=== PATIENT | female | born 1985 | race Caucasian/White ===

== ENCOUNTER → 2020-09-25 10:35 | Outpatient (CLI) | payer OTHER, MEDICAID, SELFPAY ==
[2020-09-25 12:22] LABS: Add Manual Diff / Slide Review NO; Basophils Absolute Auto 0 /uL (0-100); Basophils Percent Auto 0.9 % (0-2); Eosinophils Absolute Auto 100 /uL (0-450); Eosinophils Percent Auto 2.7 % (2-4); Hematocrit 41.9 % (36-46); Hemoglobin 14.5 g/dL (12.0-16.0); Lymphocytes Absolute Auto 1500 /uL (1100-4500); Lymphocytes Percent Auto 36.5 % (25-40); Mean Corpuscular HGB Conc 34.5 % (30-36); Mean Corpuscular Hemoglobin 32.1 PG (26-34); Mean Corpuscular Volume 92.9 fL (80-100); Monocytes Absolute Auto 300 /uL (0-900); Monocytes Percent Auto 7.6 % (3-14); Neutrophils Absolute Auto 2200 /uL (1500-7000); Neutrophils Percent Auto 52.3 % (50-75); Platelet Count 329 X10^3/uL (150-400); Red Blood Cell Count 4.51 X10^6/uL (4.0-5.2); Red Cell Distribution Width 12.1 % (11.6-14.8); White Blood Cell Count 4.2 X10^3/uL (4.5-11.0)
[2020-09-25 12:40] LABS: BUN Creatinine Ratio 14.1 (6-22); Blood Urea Nitrogen 9 mg/dL (7-17); Calcium 9.2 mg/dL (8.4-10.2); Carbon Dioxide 30 mmol/L (22-32); Chloride 104 mmol/L (98-107); Estimated Glomerular Filt Rate > 60.0 mL/min (>60); Glucose 104 mg/dL (70-100); HEMOLYSIS < 15 (0-50); Potassium 4.3 mmol/L (3.4-5.1); Sodium 137 mmol/L (137-145)
[2020-09-25 13:07] LABS: Free T3, Triiodothyronine Free 5.11 pg/mL (2.77-5.27); Free T4, Direct Thyroxine 0.81 ng/dL (0.78-2.19)
[2020-09-25 13:20] LABS: Thyroid Stimulating Hormone 0.419 uIU/mL (0.47-4.68)
== END ==
PROVIDERS: PCP Family Medicine; Referring Provider Family Medicine; Visit Provider Family Medicine
DX: Z00.00 Encounter for general adult medical examination without abnormal findings (principal); R94.6 Abnormal results of thyroid function studies
CPT/HCPCS: 36415; 80048; 84439; 84443; 84481; 85025

== ENCOUNTER → 2021-02-19 10:44 | Outpatient (CLI) | payer OTHER, MEDICAID, SELFPAY ==
[2021-02-19 16:09] LABS: Rubella Antibody IgG 25.3 IU/mL (>15)
[2021-02-20 07:31] LABS: Toxoplasma IgG Interp Negative (.); Toxoplasma gohndii IgG <3.0 IU/mL (0.0-7.1)
[2021-02-20 13:00] LABS: Varicella IgG Antibody 1325 index (Immune >165)
== END ==
PROVIDERS: PCP Family Medicine; Referring Provider Obstetrics & Gynecology; Visit Provider Obstetrics & Gynecology
DX: Z31.69 Encounter for other general counseling and advice on procreation (principal)
CPT/HCPCS: 36415; 86762; 86777; 86778; 86787

== ENCOUNTER → 2021-08-29 15:20 | Outpatient (CLI) | payer OTHER, MEDICAID, SELFPAY ==
[2021-08-29 15:29] LABS: Specimen Label NATERA SEND OUT KIT
[2021-08-29 15:49] LABS: Add Manual Diff / Slide Review NO; Basophils Absolute Auto 0 /uL (0-100); Basophils Percent Auto 0.4 % (0-2); Eosinophils Absolute Auto 100 /uL (0-450); Eosinophils Percent Auto 1.4 % (2-4); Hematocrit 39.9 % (36-46); Hemoglobin 13.5 g/dL (12.0-16.0); Lymphocytes Absolute Auto 1500 /uL (1100-4500); Lymphocytes Percent Auto 23.6 % (25-40); Mean Corpuscular HGB Conc 33.9 % (30-36); Mean Corpuscular Hemoglobin 31.1 PG (26-34); Mean Corpuscular Volume 91.6 fL (80-100); Monocytes Absolute Auto 500 /uL (0-900); Neutrophils Absolute Auto 4100 /uL (1500-7000); Neutrophils Percent Auto 66.6 % (50-75); Platelet Count 402 X10^3/uL (150-400); Red Blood Cell Count 4.35 X10^6/uL (4.0-5.2); White Blood Cell Count 6.2 X10^3/uL (4.5-11.0)
[2021-08-29 15:54] LABS: Appearance Urine UA SL CLOUDY; Bilirubin Urine UA NEGATIVE (NEGATIVE); Color Urine UA YELLOW; Glucose Urine UA NEGATIVE (Negative); Ketones Urine UA NEGATIVE (NEGATIVE); Leukocyte Esterase Urine UA NEGATIVE (NEGATIVE); Nitrite Urine UA NEGATIVE (Negative); Occult Blood Urine UA NEGATIVE (Negative); Protein Urine UA TRACE (Negative); Specific Gravity Urine UA 1.015 (1.000-1.035); Urobilinogen Urine UA 0.2 E.U./dL (0.2)
[2021-08-29 16:27] LABS: Free T4, Direct Thyroxine 1.05 ng/dL (0.78-2.19)
[2021-08-29 16:41] LABS: Thyroid Stimulating Hormone 0.671 uIU/mL (0.47-4.68)
[2021-08-29 18:15] LABS: Hepatitis B Surface Antigen NEGATIVE s/c (NEGATIVE); Rubella Antibody IgG 25.5 IU/mL (>15)
[2021-08-29 18:27] LABS: HIV 1 & 2 Ab/Ag 4th Gen Combo NEGATIVE (NEGATIVE); Hep C Virus Ab w/Reflex Quant NEGATIVE s/c (NEGATIVE)
[2021-08-30 08:05] LABS: RPR Screen Non Reactive (Non Reactive)
[2021-08-30 14:36] LABS: Varicella IgG Antibody 1097 index (Immune >165)
== END ==
PROVIDERS: PCP Family Medicine; Referring Provider Specialist; Visit Provider Specialist
DX: O09.511 Supervision of elderly primigravida, first trimester (principal)
CPT/HCPCS: 36415; 80055; 81003; 84439; 84443; 86787; 86803; 86850; 86900; 86901; 87086; 87389

== ENCOUNTER → 2021-09-27 11:10 | Outpatient (CLI) | payer OTHER, MEDICAID, SELFPAY ==
[2021-10-01 21:30] LABS: Gest Age on Col Date 16.6 weeks (.); Gestational Age Ultrasound (.); Insulin Dep Diabetes No (.); OSBR Risk 1IN 4273 (.); Results Report (.); Test Results *Screen Negative* (.)
== END ==
PROVIDERS: PCP Family Medicine; Referring Provider Specialist; Visit Provider Specialist
DX: Z34.02 Encounter for supervision of normal first pregnancy, second trimester (principal); Z3A.16 16 weeks gestation of pregnancy
CPT/HCPCS: 36415; 82105

== ENCOUNTER → 2021-10-24 12:34 | Outpatient (CLI) | payer OTHER, MEDICAID, SELFPAY ==
--- NOTE | 2021-10-24 12:35 | DI.US.S_ITS ---
PROCEDURE: US OB >= 14 WEEKS FETUS INDICATIONS: ANATOMY OUTSIDE/PRIOR DATING DATA: Last menstrual period (LMP): 06/06/21. LMP-based estimated date of delivery (GRAYSON): 03/13/22. First dating scan (date and location): 08/28/21. Estimated date of delivery (GRAYSON) from first dating scan: 03/11/22. The calculations are made using the first-trimester ultrasound derived GRAYSON of 03/11/22. TECHNIQUE: Real-time scanning was performed of the fetus, with image documentation and biometric measurements. Endovaginal scanning: Not performed COMPARISON: None. FINDINGS: General: A single living intrauterine gestation is present. Presentation: Vertex. Placenta: Placental position is posterior , without previa. Amniotic fluid index: 10.3 cm, normal range is 5-24 cm. Single deepest vertical pocket is 3.2 cm. heart rate: 147 beats per minute. Maternal cervical canal: 4.8 cm long. Normal lower limit is 2.5 cm. biometrics: Biparietal diameter: 4.9 cm, 20 weeks, five days Head circumference: 17.6 cm, 20 weeks, one day Abdominal circumference: 14.6 cm, 19 weeks, six days Femur length: 3.0 cm, 19 weeks, three days Clinically estimated gestational age: 20 weeks, two days Composite gestational age from present scan: 20 weeks, 0 days Estimated weight and percentile: 309 g, 18th percentile Anatomic survey: Neuro: Ventricles are non-dilated at less than 10 mm. Cisterna magna is normal at 3-11 mm. Cerebellum is normal in size and morphology. Nuchal skin fold: Normal at less than 6 mm between 14-21 weeks gestational age. Face: Nose and lips, facial profile are normal. Spine: No evidence for spina bifida. Heart: 4-chambered heart is present, with normal ventricular outflow tracts. Diaphragm: Diaphragm is intact. Stomach: Left-sided stomach is present. Kidneys: No hydronephrosis. Normal is less than 5 mm in 2nd trimester, less than 7 mm in 3rd trimester. Cord: 3-vessel cord has orthotopic insertion. Bladder: Normal in size. Extremities: All 4 extremities identified. IMPRESSION: 1. Single living intrauterine with appropriate growth since the prior study. 2. Normal anatomy. 3. Normal amniotic fluid volume. We strive to produce accurate, complete, and clear reports of imaging services. To assist us in improving patient care, this report was composed using standard report templates and voice recognition software. Therefore, it may contain abnormal punctuation, insertions and/or omissions. Occasional wrong-word or sound-alike substitutions may occur. Though we review the report and make efforts to correct it, we do recommend that the report be read carefully in proper context to recognize any text inaccuracies. Dictated by: Priya Lacey M.D. on 10/24/2021 at 13:52 Approved by: Priya Lacey M.D. on 10/24/2021 at 14:02
== END ==
PROVIDERS: PCP Family Medicine; Referring Provider Specialist; Visit Provider Specialist
DX: Z34.02 Encounter for supervision of normal first pregnancy, second trimester (principal); Z3A.20 20 weeks gestation of pregnancy
CPT/HCPCS: 76811

== ENCOUNTER → 2021-11-05 08:31 | Outpatient (CLI) | payer OTHER, MEDICAID, SELFPAY ==
[2021-11-05 10:29] LABS: Free T4, Direct Thyroxine 0.75 ng/dL (0.78-2.19)
== END ==
PROVIDERS: PCP Family Medicine; Referring Provider Specialist; Visit Provider Specialist
DX: E03.9 Hypothyroidism, unspecified (principal)
CPT/HCPCS: 36415; 84439; 84443

== ENCOUNTER → 2021-11-27 08:46 | Outpatient (CLI) | payer OTHER, MEDICAID, SELFPAY ==
[2021-11-27 10:39] LABS: Hematocrit 34.5 % (36-46); Hemoglobin 11.8 g/dL (12.0-16.0)
[2021-11-27 11:00] LABS: GTT (PREG) 1 Hour PP 50gm Dose 147 mg/dL (76-139)
== END ==
PROVIDERS: PCP Family Medicine; Referring Provider Specialist; Visit Provider Specialist
DX: Z34.82 Encounter for supervision of other normal pregnancy, second trimester (principal); Z34.02 Encounter for supervision of normal first pregnancy, second trimester; Z3A.25 25 weeks gestation of pregnancy
CPT/HCPCS: 36415; 82950; 85014; 85018

== ENCOUNTER → 2021-11-30 07:16 | Outpatient (CLI) | payer OTHER, MEDICAID, SELFPAY ==
[2021-11-30 09:45] LABS: Glucose Fasting Gestational 83 mg/dL (76-95)
[2021-11-30 09:50] LABS: Glucose 1 Hour Gest 156 mg/dL (76-180)
[2021-11-30 10:31] LABS: Glucose Tol Interp,Gestational INTERPRETATION
[2021-11-30 10:43] LABS: Glucose 2 Hour Gest 121 mg/dL (76-155)
[2021-11-30 11:07] LABS: Glucose 3 Hour Gest 119 mg/dL (76-140)
== END ==
PROVIDERS: PCP Family Medicine; Referring Provider Specialist; Visit Provider Specialist
DX: O99.810 Abnormal glucose complicating pregnancy (principal)
CPT/HCPCS: 36415; 82951; 82952

== ENCOUNTER → 2022-02-15 12:04 | Outpatient (ROUT) | payer OTHER, MEDICAID, SELFPAY | PROVIDERS: PCP Family Medicine; Visit Provider Nurse Practitioner Obstetrics & Gynecology | DX: Z36.85 Encounter for antenatal screening for Streptococcus B (principal); Z3A.36 36 weeks gestation of pregnancy | CPT/HCPCS: 87081 ==

== ENCOUNTER 2022-03-12 17:10 | Inpatient (IN) | payer OTHER, MEDICAID, SELFPAY ==
--- NOTE | 2022-03-12 17:19 | PM.OBHP.1 ---
OB HPI Date/Time Date of admission: 03/12/22 Date Patient Seen: 03/12/22 Time Patient Seen: 17:20 History of Present Condition Chief complaint: observatinn of labor : 1 Para: 0 Estimated Date of Delivery: 03/13/22 Estimated Gestational Age (weeks): 39.6 Narrative: Regine Bustillos is a 37 year old female @ [id number] by LMP and 11wk US her for IOL for preeclampsia. PN care w/ CNM, transferred in from @ 27wks. Hypothyroid well managed with DEMAND INSPECTOR thyroid PO. Began to see edema and BPs rising at 37wks. Was closely monitored and met diagnostic criteria for preeclampsia today w/ Pr:Cr 0.436 on 03/07/22 and BPs 140's/90's today. Green balloon was placed around 1200 today with reactive NST. Green balloon came out at 1530. Moderate edema to hands, feet and face. No AZUL, scotoma, or RUQ pain. No VB or LOF. Currently feeling strong, regular contractions, breathing through them and reports they are stronger than before the Green balloon came out. Desires low intervention and is disappointed with need for medical induction. and mother are present and supportive. Indications Indication for induction OB: gestational HTN/pre-eclampsia History of Present care: good care, initiated at week # (11), number of visits (15) and pounds weight gain (38) Dating criteria: LMP confirmed by 1st trimester US Ultrasounds: normal mid trimester US Obstetrical complications: preeclampsia Medical complications: other (hypothyroid) Preadmission Labs Blood type: O (+) positive -: Antibody screen: negative, GBS status: negative, HBsAG: negative, HIV: negative and RPR/VDLR: negative -: Chlamydia screen: not detected and Gonorrhea screen: not detected -: Rubella: immune and Varicella: immune HCT: 37.6 HCAB: negative PAP: Normal Cell-free DNA: Negative 1 hr GTT: 147 3 hr GTT: 1 hr (156), 2 hr (121) and 3 hr (119) Fasting blood glucose: 86 Narrative: 03/07/22: Creatinine-0.67, ALT-31, AST-36, Pr:Cr-0.436, Plt- 230 Evaluation Evaluation Baseline heart rate: 135 Variability: Moderate (11-25) monitor accelerations: Present Monitor Decelerations: Absent Contraction Frequency (minutes): 2 Uterine Contraction Intensity: Strong/Firm Status: Category l PFS Medical History (Updated 10/24/21 @ 09:10 by Salma Torres MD) Abnormal Pap smear of cervix (~2015) Borderline hypothyroidism (~2015) Cervical somatic dysfunction (~2017) Chicken pox (~1991) COVID-19 (~08/13/21) Left-sided low back pain without sciatica (~2017) Lumbar region somatic dysfunction (~2017) Migraines (~2005) Pelvic somatic dysfunction (~2017) Right lateral epicondylitis (~2017) Sacral region somatic dysfunction (~2017) Segmental and somatic dysfunction of abdomen and other regions (~2017) Upper extremity somatic dysfunction (~2017) Surgical History (Updated 08/23/21 @ 12:31 by Kavitha Cole RN) Anesthesia History of adenoidectomy (~1991) [place] teeth removed (~1999) Family History (Updated 08/23/21 @ 12:41 by Kavitha Cole RN) Father Hyperlipidemia Grandmother History of heart disease Hypertension Hyperlipidemia Grandfather Cancer Brain tumor Grandmother Cancer Diabetes mellitus Mother No problems noted. Grandfather Unknown family medical history Social History marital status: number of children: 0 household members: spouse lives independently: Yes caregiver/support person: No housing: house pets and animals: Yes (3 dogs, 2 cats: aware/safe. ) education level: college (BA Biology. 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 ) current occupational exposures/hazards: No special maral needs: No seatbelt use: always do you feel safe at home: Yes Smoking Status: Never smoker second hand exposure: No alcohol intake: former (Pre-: 2-3 x week on weekends only.) substance use type: does not use during the past year weight has: remained stable well-balanced diet: daily or most days daily servings fruits/ve-4 caffeine: No (Aversion now. 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 ) frequency: daily duration: 30-45 minutes/day Meds Home Medications and Allergies Home Medications Medication Instructions Recorded Confirmed Type ondansetron HCl 4 mg tablet 4 mg PO Q8H PRN #20 tab 08/20/21 12/19/21 Rx (Zofran) prenat.vits,macy,kem-sawj-wrcci 1 tab PO DAILY 08/23/21 12/19/21 History thyroid (pork) 15 mg tablet (DEMAND INSPECTOR See Rx Instructions .ROUTE 08/23/21 12/19/21 Rx Thyroid) .COMPLEX #270 tab Allergies Allergy/AdvReac Type Severity Reaction Status Date / Time No Known Drug Allergies Allergy Verified 08/23/21 12:19 Review of Systems Review of Systems ROS: Yes All systems reviewed with the patient and are negative except as otherwise documented OB Exam Narrative Exam Narrative: BP 142/75, HR 75bpm, T 97.3F Temporal Resp Effort & Inspection: normal respiratory effort Auscultation: clear to auscultation bilaterally Cardio Rate: regular rate Rhythm: regular rhythm Heart Sounds: S1 normal and S2 normal Extremities Lower extremity: Yes edema Laterality: bilateral edema degree: 1+ DTR's: Rt Patellar: 2+ and Lt Patellar: 2+ Presentation: vertex Assessment and Plan Assessment and Plan Assessment and Plan narrative: A: Term nullipara Approaching active labor Preeclampsia No indication for GBS prophylaxis Hypothyroid- well managed Cat I FHR P: Admit, routine orders w/ preeclampsia panel. Will hold pitocin as patient appears to be in spontaneous labor. Labor support PRN. Consulted [facility]/ who is aware of patient status and plan of care and in agreement. Q1hr BPs, will consult, PRN severe preeclampsia. Reassess in 4 hours or sooner, PRN.
[2022-03-12 18:50] LABS: Add Manual Diff / Slide Review NO; Basophils Absolute Auto 100 /uL (0-100); Basophils Percent Auto 0.6 % (0-2); Eosinophils Absolute Auto 0 /uL (0-450); Eosinophils Percent Auto 0.3 % (2-4); Hematocrit 38.3 % (36-46); Hemoglobin 13.2 g/dL (12.0-16.0); Lymphocytes Absolute Auto 1200 /uL (1100-4500); Lymphocytes Percent Auto 9.1 % (25-40); Mean Corpuscular HGB Conc 34.5 % (30-36); Mean Corpuscular Hemoglobin 30.4 PG (26-34); Mean Corpuscular Volume 88.3 fL (80-100); Monocytes Absolute Auto 1000 /uL (0-900); Monocytes Percent Auto 7.6 % (3-14); Neutrophils Absolute Auto 10900 /uL (1500-7000); Neutrophils Percent Auto 82.4 % (50-75); Platelet Count 243 X10^3/uL (150-400); Red Blood Cell Count 4.34 X10^6/uL (4.0-5.2); Red Cell Distribution Width 13.9 % (11.6-14.8); White Blood Cell Count 13.2 X10^3/uL (4.5-11.0)
[2022-03-12 18:59] LABS: Aspartate Aminotransferase 47 IU/L (14-36); BUN Creatinine Ratio 11.5 (6-22); Blood Urea Nitrogen 9 mg/dL (7-17); Estimated Glomerular Filt Rate > 60 mL/min (>60)
[2022-03-12 19:05] LABS: COVID19 -Nasal RAPID Negative (Negative)
[2022-03-12 19:06] VITALS: BP 142/75
--- NOTE | 2022-03-12 21:37 | PM.OBPNLAB ---
Date/Time Date Patient Seen: 03/12/22 Time Patient Seen: 21:15 Pain Control Pain control: epidural Comments: Breathing and vocalizing through contractions. Labored in tub for 1 hour and requested cervical check. After cervical check, requested epidural. Now resting comfortably with epidural. VS: 119/90, HR 92 bpm, temp 36.3C temporal Pelvic Exam Dilation (cm): 6 Effacement (%): 100 station: -1 Amniotic membrane status: Bulging Comments: Placed Green catheter. Contractions Date/Time contractions began: 1200 Contractions on admission: regular Monitor mode: External Contraction frequency (min): 2 Contraction duration (min): 1 Contraction pattern: Regular Contraction intensity: Strong/Firm Status status: Category ll Heart Rate Baseline: 130 Monitor Accelerations: Present Monitor Decelerations: Variable Monitor Variability: Moderate Comments: Variable decels resolved with position change. Assessment and Plan Assessment: active labor Plan: continuous present management Comments: Encourage rest and position changes. Recheck in 4 hours or sooner, PRN.
[2022-03-12] MEDS: LACTATED RINGERS 1,000 ML 100 ML IV (21:47)
[2022-03-12 22:25] LABS: Protein (Total) Urine Random 143 mg/dL (0-12); Protein Creatinine Ratio Urine 0.73 GRAM/24H
--- NOTE | 2022-03-13 01:21 | PM.OBPNLAB ---
Date/Time Date Patient Seen: 03/13/22 Time Patient Seen: 01:21 Pain Control Pain control: epidural Comments: Has been able to get some sleep. Remains comfortable. Feeling occasional rectal pressure. VS: BP 146/88, HR 90bpm, T 37.3C Temporal Pelvic Exam Dilation (cm): 9 Effacement (%): 100 station: 0 Amniotic membrane status: Leaking (clear) Comments: scant fluid noted on pad Contractions Monitor mode: External Pitocin rate (mU/min): 0 Contraction frequency (min): 3 Contraction duration (min): 2 Contraction pattern: Regular Contraction intensity: Strong/Firm Status status: Category ll Heart Rate Baseline: 135 Monitor Accelerations: Present Monitor Decelerations: Variable Assessment and Plan Assessment: active labor Plan: continuous present management Comments: Reassess in 2-4 hours.
[2022-03-13] MEDS: LACTATED RINGERS 1,000 ML 100 ML IV ×2 (04:22→05:44)
--- NOTE | 2022-03-13 06:07 | PM.OBPNLAB ---
Date/Time Date Patient Seen: 03/13/22 Time Patient Seen: 06:07 Pain Control Pain control: epidural Comments: Feeling occasional rectal pressure. Using PCEA for window in left lower quadrant. Pelvic Exam Dilation (cm): 10 Effacement (%): 100 station: 0 Amniotic membrane status: Leaking (clear) Comments: Trial push was ineffective with no noted descent. Contractions Monitor mode: External Contraction frequency (min): 3 Contraction duration (min): 1 Contraction pattern: Regular Contraction intensity: Strong/Firm Status status: Category ll Heart Rate Baseline: 130 Monitor Accelerations: Present Monitor Decelerations: Early and Variable Monitor Variability: Moderate Comments: overall reassuring Assessment and Plan Assessment: active labor Plan: continuous present management Comments: Labor down for 1-2 hours.
--- NOTE | 2022-03-13 09:45 | PM.OBPRVD ---
Events: Pre-Eclampsia and Labor Induction Labor & Delivery Delivery date: 03/13/22 Intrapartal Events: None Cervical ripening method: per Green bulb protocol Induction method: none Delivery monitor: external FHT Route of delivery: Episiotomy description: None L&D Laceration Description: Perineal - 1st Degree Delivery repair: vicryl Estimated blood loss (mL): 200 Anesthesia Type: Epidural Narrative: After a 18 hour first stage, Margeaux became complete at 0645 with an urge to push. Initial slow descent in second stage with improved descent as pushing efforts became more coordinated. Delivered in semi-fowlers. Category II FHT: variable decels noted with good return to baseline as contraction ended. A second stage of 2 hours 23 minutes led to controlled NSVB with four-handed catch by CNM and FOB at 0908 of a baby girl with spontaneous respirations and cry. Tight nuchal cord x 1, somersaulted through. Baby delivered SIMONE and restituted to ROT. Baby placed directly on maternal abdomen for drying and stimulation. Pitocin 30 units in 500 ml at 200 ml/hour was started for AMTSL. Delayed cord clamping. Hospital cord blood sample collected. Placenta delivered at 0916 with gentle cord traction and maternal effort, via Schultze maneuver, appears complete with 3 vessel cord. Uterus firm and flow scanty. 1st degree perineal laceration repaired with 3-0 vicryl in usual fashion under adequate epidural anesthesia. QBL 200 ml. Mother and baby stable and edop-st-odbx as I left the room. Initial PP vital signs: BP 143/85, HR 80, temp 36.6C temporal SNM Unique Beyer was present throughout the . [place] Baby 1: Infant gender: Female Presentation: vertex Position: Right Occiput Anterior Placenta delivery description: Spontaneous Cord Vessel Description: 3 Vessels, Nuchal Cord and Tight score (1 min): 8 score (5 min): 9 weight: 3.55 kg Plan for aftercare: Routine care
[2022-03-13] MEDS: KETOROLAC 30 MG/ML VIAL IV (10:27)
[2022-03-13] MEDS: DERMOPLAST SPRAY 20% 60 ML 1 SPRAY TOP (17:04)
[2022-03-13 17:05] VITALS: TEMP 35.9
[2022-03-13] MEDS: LANOLIN OINT 7 GM 1 APPLIC TOP (17:05)
[2022-03-13] MEDS: ACETAMINOPHEN 325 MG TABLET 650 MG PO (17:05)
[2022-03-13 17:06] VITALS: TEMP 35.9
[2022-03-13] MEDS: IBUPROFEN 600 MG TABLET PO (17:06)
[2022-03-14] MEDS: ACETAMINOPHEN 325 MG TABLET 650 MG PO ×2 (00:05→07:36)
[2022-03-14] MEDS: OXYCODONE IR 5 MG TABLET PO ×3 (00:05→11:11)
[2022-03-14] MEDS: IBUPROFEN 600 MG TABLET PO ×2 (00:05→07:35)
--- NOTE | 2022-03-14 08:04 | P.DS_ITS ---
Discharge Providers Provider Date of admission: 03/12/22 17:10 Discharge Date: 03/14/22 Primary care physician: Rasheed Marlow DO Consults: 03/14/22 09:42 Consult to [place] Screen Operator Routine Comment: Discharge provider: Ling Alejandro CNM Summary Hospital Course Date Patient Seen: 03/14/22 Time Patient Seen: 08:05 Diagnoses: O70.0 Hospital Course: PPD1: Regine is voiding, ambulating and independently. Tolerating a general diet. Peripartum Data Infant Delivery Method: Natural Vaginal Laceration Description: Perineal - 1st Degree Episiotomy description: None complications: none [place] 1: Gender: Female Status at Discharge Cognitive/behavioral status at discharge: oriented Functional status at discharge: independent ambulation Overall status at discharge: patient is back to baseline Time Spent with Patient Time attestation: Total time spent providing and/or coordinating discharge services: Time spent: Greater than 30 minutes Specific discharge activities: Routine PP orders and precautions Objective Labs Result Diagrams: 03/12/22 18:36 03/12/22 18:36 Exam Vital Signs (past 8 hours): BP 109/58mmhg, HR 78bpm, RR 18/min, T 97.7F while sleeping Other: Fundus firm @ U-1, lochia scant, perineum well approximated. Psych Appearance: grossly normal Mood: congruent mood Affect: normal affect Attitude: cooperative Discharge Plan Discharge Plan Patient Disposition: Home Discharge orders & Medications Prescriptions: New ibuprofen 600 mg Tablet 600 mg PO Q6HR PRN (Reason: Pain, Mild (1-3)) 14 Days Qty: 60 0RF oxycodone 5 mg capsule 5 mg PO Q6H MDD 4 PRN (Reason: pain) Qty: 10 0RF Continued thyroid (pork) [CHRISTIAN SCIENCE NURSE Thyroid] 15 mg tablet See Rx Instructions .ROUTE .COMPLEX Qty: 270 3RF Dose Instruction: TAKE 3 TABLETS BY MOUTH DAILY Rx Instructions: TAKE 3 TABLETS BY MOUTH DAILY prenat.vits,macy,tum-kpuv-ypscn Tablet 1 tab PO DAILY 0RF Discontinued ondansetron HCl [Zofran] 4 mg tablet 4 mg PO Q8H PRN (Reason: nausea and vomiting) Qty: 20 2RF Follow up/Referrals: Ling Alejandro CNM [[employer]] - (Follow-up by Telehealth 03/27/22 @ 1130am Follow-up in office 04/24/22 @ 1030am) Rasheed Marlow DO [Primary Care Provider] - Diet/Activity/Treatments Diet: Feed on demand Activity: pelvic rest x 6 weeks Skin/Wound/Dressing Care Report to your healthcare provider any signs of infection, such as:: chills, fever, increased pain, unusual drainage and unusual redness Visit Report/Discharge Packet Instructions: Depression Stand Alone Forms: Discharge: Care Discharge Data Primary Care Provider: Rasheed Marlow
[2022-03-14 10:48] VITALS: BP 137/75; PULSE 73; RESP 18; TEMP 36.8
== END 2022-03-14 14:10 | disposition home or self-care (01) | DRG 560 ==
PROVIDERS: Admitting Provider Nurse Practitioner Obstetrics & Gynecology; PCP Family Medicine; Referring Provider Nurse Practitioner Obstetrics & Gynecology; Visit Provider Nurse Practitioner Obstetrics & Gynecology
DX: O14.94 Unspecified pre-eclampsia, complicating childbirth (principal); Z3A.39 39 weeks gestation of pregnancy; Z37.0 Single live birth; O99.284 Endocrine, nutritional and metabolic diseases complicating childbirth; E03.9 Hypothyroidism, unspecified; O70.0 First degree perineal laceration during delivery; O69.81X0 Labor and delivery complicated by cord around neck, without compression, not applicable or unspecified; O76 Abnormality in fetal heart rate and rhythm complicating labor and delivery; Z20.822 Contact with and (suspected) exposure to COVID-19
CPT/HCPCS: 01967; 59050; 82570; 84156; 84450; 84550; 85025; 86850; 86900; 86901; 87635; C9803; G0379; J1885

== ENCOUNTER 2022-03-18 14:35 | Inpatient (IN) | payer OTHER, MEDICAID, SELFPAY ==
[2022-03-18] VITALS (20 sets, daily range): BP systolic 123–177; BP diastolic 68–113; PULSE 64–95; RESP 16–19; TEMP 36.4–36.8; O2SAT 97–100; BMI 27.3
--- NOTE | 2022-03-18 15:10 | PM.OBHP.IH.1 ---
OB HPI History of Present Condition Chief complaint: OBSERVATION GRAYSON Calculator Estimated Delivery Date Method Current WG Current Estimate 03/13/22 LMP (Uncertain) 40w 5d Other Estimates 03/15/22 Ultrasound #1 40w 3d Preadmission Labs Last OB Lab Results: Blood Type O Positive 03/12/22 18:36 03/12/22 Antibody Screen Negative 03/12/22 18:36 03/12/22 Hematocrit 38.3 % (36-46) 03/12/22 18:36 03/12/22 Hemoglobin 13.2 g/dL (12.0-16.0) 03/12/22 18:36 03/12/22 Hepatitis B Surface Antigen Negative s/c (NEGATIVE) 08/29/21 15:27 08/29/21 Hepatitis C Antibody Negative s/c (NEGATIVE) 08/29/21 15:27 08/29/21 Rubella Antibody 25.5 IU/mL (>15) 08/29/21 15:27 08/29/21 Varicella-Zoster IgG Antibody 1097 index (Immune >165) 08/29/21 15:27 08/29/21 Glucose 1 Hour 147 mg/dL (76-139) H 11/27/21 09:57 11/27/21 [facility] Medical History (Updated 10/24/21 @ 09:10 by Salma Torres MD) Abnormal Pap smear of cervix (~2015) Borderline hypothyroidism (~2015) Cervical somatic dysfunction (~2017) Chicken pox (~1991) COVID-19 (~08/13/21) Left-sided low back pain without sciatica (~2017) Lumbar region somatic dysfunction (~2017) Migraines (~2005) Pelvic somatic dysfunction (~2017) Right lateral epicondylitis (~2017) Sacral region somatic dysfunction (~2017) Segmental and somatic dysfunction of abdomen and other regions (~2017) Upper extremity somatic dysfunction (~2017) Surgical History (Updated 08/23/21 @ 12:31 by Kavitha Cole RN) Anesthesia History of adenoidectomy (~1991) [place] teeth removed (~1999) Family History (Updated 08/23/21 @ 12:41 by Kavitha Cole, RAYA) Father Hyperlipidemia Grandmother History of heart disease Hypertension Hyperlipidemia Grandfather Cancer Brain tumor Grandmother Cancer Diabetes mellitus Mother No problems noted. Grandfather Unknown family medical history Social History marital status: number of children: 0 household members: spouse lives independently: Yes caregiver/support person: No housing: house pets and animals: Yes (3 dogs, 2 cats: aware/safe. ) education level: college (BA Biology. 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 ) current occupational exposures/hazards: No special maral needs: No seatbelt use: always do you feel safe at home: Yes Smoking Status: Never smoker second hand exposure: No alcohol intake: former (Pre-: 2-3 x week on weekends only.) substance use type: does not use during the past year weight has: remained stable well-balanced diet: daily or most days daily servings fruits/ve-4 caffeine: No (Aversion now. 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 ) frequency: daily duration: 30-45 minutes/day Meds Home Medications and Allergies Home Medications Medication Instructions Recorded Confirmed Type prenat.vits,macy,oba-xgyt-wdbvh 1 tab PO DAILY 08/23/21 03/12/22 History thyroid (pork) 15 mg tablet (SECURITY SYSTEMS SPECIALIST See Rx Instructions .ROUTE 08/23/21 03/12/22 Rx Thyroid) .COMPLEX #270 tab ibuprofen 600 mg tablet 600 mg PO Q6HR PRN 14 Days #60 tab 03/14/22 Rx oxycodone 5 mg capsule 5 mg PO Q6H PRN #10 cap MDD 4 03/14/22 Rx Allergies Allergy/AdvReac Type Severity Reaction Status Date / Time No Known Drug Allergies Allergy Verified 08/23/21 12:19
[2022-03-18] MEDS: NIFEdipine 10 MG CAPSULE PO (15:12)
[2022-03-18 15:16] LABS: Add Manual Diff / Slide Review NO; Basophils Absolute Auto 100 /uL (0-100); Basophils Percent Auto 0.9 % (0-2); Eosinophils Absolute Auto 200 /uL (0-450); Eosinophils Percent Auto 2.2 % (2-4); Hematocrit 35.7 % (36-46); Hemoglobin 12.2 g/dL (12.0-16.0); Lymphocytes Absolute Auto 1500 /uL (1100-4500); Lymphocytes Percent Auto 18.1 % (25-40); Mean Corpuscular HGB Conc 34.3 % (30-36); Mean Corpuscular Hemoglobin 30.7 PG (26-34); Mean Corpuscular Volume 89.6 fL (80-100); Monocytes Absolute Auto 700 /uL (0-900); Neutrophils Absolute Auto 5900 /uL (1500-7000); Neutrophils Percent Auto 70.8 % (50-75); Platelet Count 322 X10^3/uL (150-400); Red Blood Cell Count 3.98 X10^6/uL (4.0-5.2); Red Cell Distribution Width 14.5 % (11.6-14.8); White Blood Cell Count 8.3 X10^3/uL (4.5-11.0)
[2022-03-18 15:25] LABS: Alanine Aminotransferase 154 IU/L (<35); Albumin 3.8 g/dL (3.5-5.0); Albumin Globulin Ratio 1.1 (1.0-2.8); Alkaline Phosphatase 171 U/L (38-126); Aspartate Aminotransferase 110 IU/L (14-36); BUN Creatinine Ratio 19.7 (6-22); Bilirubin Total 0.4 mg/dL (0.2-1.3); Blood Urea Nitrogen 15 mg/dL (7-17); Calcium 8.9 mg/dL (8.4-10.2); Carbon Dioxide 24 mmol/L (22-32); Chloride 105 mmol/L (98-107); Estimated Glomerular Filt Rate > 60 mL/min (>60); Globulin 3.4 g/dL (1.7-4.1); Glucose 95 mg/dL (70-100); HEMOLYSIS < 15 (0-50); Lactate Dehydrogenase 812 U/L (313-618); Sodium 136 mmol/L (137-145); Total Protein 7.2 g/dL (6.3-8.2); Uric Acid 5.8 mg/dL (2.5-6.2)
[2022-03-18] MEDS: LACTATED RINGERS 1,000 ML 42 ML IV (15:46)
[2022-03-18] MEDS: MAGNESIUM SULFATE 4 GM/100 ML PIGGYBACK IV (15:48)
[2022-03-18] MEDS: NIFEdipine 10 MG CAPSULE 20 MG PO (16:16)
[2022-03-18] MEDS: MAGNESIUM SULFATE 20 GM/500 ML IV.SOLN IV (16:28)
[2022-03-18 16:35] LABS: Creatinine Urine Random 64.5 mg/dL; Protein (Total) Urine Random 37 mg/dL (0-12); Protein Creatinine Ratio Urine 0.57 GRAM/24H
--- NOTE | 2022-03-18 16:55 | PC.NURSE ---
Late entry from 1445: Patient arrived from clinic for preeclampsia admission. Aprical HR regular, LS CTA, 2+ patellar DTR's, no clonus, pitting pedal edema, 3+ on right and 2+ on left. Pt. denies headache, visual changes, epigastric pain and N&V. Blood pressure cuff on and serial bp's cycling. Plan of care reviewed with patient regarding Magnesium sulfate administration. Patient verbalizes understanding. 1451: Dr. Terry at bedside reviewing vital signs and plan plan of care with patient.
--- NOTE | 2022-03-18 16:58 | PC.NURSE ---
1450: MD at bedside, verbal orders received. 1455: IV start 18g in left forearm, labs drawn. 1510: 10mg PO Nifedipine given
--- NOTE | 2022-03-18 17:16 | PC.NURSE ---
Late entry 1552-4gram Magnesium Sulfate bolus initiated.
--- NOTE | 2022-03-18 17:16 | PC.NURSE ---
03/18/2022 1630- [place] at bedside.
--- NOTE | 2022-03-18 17:33 | PC.NURSE ---
Addendum entered by Priya Estrada R.N. 03/18/22 17:38: 1545* Original Note: Prior to 4 g Magnesium bolus. Lung sounds clear bilaterally throughout. DTR +1 bilaterally. Clonus absent, no beats. Pt. denies headache, blurred vision or dizziness.
--- NOTE | 2022-03-18 17:37 | PC.NURSE ---
1630 Post to 4 g Magnesium bolus. Lung sounds clear bilaterally throughout. DTR +1 bilaterally. Clonus absent, no beats. Pt. denies headache, blurred vision or dizziness. To start maintenance dose
--- NOTE | 2022-03-18 19:01 | PM.GYNHP.1 ---
History of Present Illness History of Present Illness Reason for admission: other (preeclampsia with severe features) Narrative: This patient is a 37yo P1 PPD#5 admitted with preeclampsia with severe features. The patient developed preeclampsia without severe features while in latent labor, and was delivered at 40 weeks gestation. Her BPs were 130s-140s/80s at discharge, and she was not on antihypertensives. The patient reports that she presented to SANJUANITA Javon's office for a blood pressure check, and was persistently 170s/110s. She presented to L&D 160s/90s, and was successfully managed with PO nifedipine per the emergent hypertension protocol. She denies AZUL, visual changes, nausea, RUQ pain, increased swelling, or decreased urine output. She denies any contributory medical or other history. [facility] Medical History Abnormal Pap smear of cervix (~2015) Borderline hypothyroidism (~2015) Cervical somatic dysfunction (~2017) Chicken pox (~1991) COVID-19 (~08/13/21) Left-sided low back pain without sciatica (~2017) Lumbar region somatic dysfunction (~2017) Migraines (~2005) Pelvic somatic dysfunction (~2017) Right lateral epicondylitis (~2017) Sacral region somatic dysfunction (~2017) Segmental and somatic dysfunction of abdomen and other regions (~2017) Upper extremity somatic dysfunction (~2018) Surgical History Anesthesia History of adenoidectomy (~1991) Mathews teeth removed (~1999) Family History Father Hyperlipidemia Grandmother History of heart disease Hypertension Hyperlipidemia Grandfather Cancer Brain tumor Grandmother Cancer Diabetes mellitus Mother No problems noted. Grandfather Unknown family medical history Social History marital status: number of children: 0 household members: spouse lives independently: Yes caregiver/support person: No housing: house pets and animals: Yes (3 dogs, 2 cats: aware/safe. ) education level: college (BA Biology. 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 ) current occupational exposures/hazards: No special maral needs: No seatbelt use: always do you feel safe at home: Yes Smoking Status: Never smoker second hand exposure: No alcohol intake: former substance use type: does not use during the past year weight has: remained stable well-balanced diet: daily or most days daily servings fruits/ve-4 caffeine: No (Aversion now. 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 See Rx Instructions .ROUTE 08/23/21 03/12/22 Rx Thyroid) .COMPLEX #270 tab ibuprofen 600 mg tablet 600 mg PO Q6HR PRN 14 Days #60 tab 03/14/22 Rx oxycodone 5 mg capsule 5 mg PO Q6H PRN #10 cap MDD 4 03/14/22 Rx Allergies Allergy/AdvReac Type Severity Reaction Status Date / Time No Known Drug Allergies Allergy Verified 08/23/21 12:19 Review of Systems Constitutional Constitutional: Reports as per HPI Cardiovascular Cardiovascular: Reports system reviewed and no additional complaints, except as documented Respiratory Respiratory: Reports system reviewed and no additional complaints, except as documented Gastrointestinal Gastrointestinal: Reports as per HPI Genitourinary Genitourinary: Reports as per HPI Neurologic Neurologic: Reports system reviewed and no additional complaints, except as documented Exam Vital Signs (past 8 hours): - 03/18/22 14:46 03/18/22 14:51 03/18/22 14:56 Temperature Pulse Rate 90 71 64 Respiratory Rate 16 16 16 Blood Pressure 166/105 H 163/99 H 153/93 H Pulse Oximetry 98 100 100 03/18/22 15:12 03/18/22 15:24 03/18/22 15:34 Temperature Pulse Rate 64 67 77 Respiratory Rate 16 16 16 Blood Pressure 150/113 H 177/98 H 149/91 H Pulse Oximetry 100 03/18/22 15:51 03/18/22 15:54 03/18/22 16:04 Temperature 98.2 F Pulse Rate 74 82 Respiratory Rate 16 16 Blood Pressure 143/91 H 143/91 H Pulse Oximetry 100 100 03/18/22 16:14 03/18/22 16:24 03/18/22 16:54 Temperature Pulse Rate 83 79 91 H Respiratory Rate 16 16 16 Blood Pressure 143/90 H 147/93 H 130/74 Pulse Oximetry 97 99 99 03/18/22 17:24 03/18/22 18:54 Temperature Pulse Rate 80 95 H Respiratory Rate 16 16 Blood Pressure 123/68 152/86 H Pulse Oximetry 98 100 Const General: cooperative, comfortable and well groomed Resp Effort & Inspection: normal respiratory effort Auscultation: clear to auscultation bilaterally Cardio Rate: regular rate Rhythm: regular rhythm GI Palpation: soft and No tender (fundus firm, well below u) Other: No RUQ tenderness Neuro Cranial Nerves: CN's II-XI intact bilaterally Extrem Other: 2+ LE edema. Brisk DTRs, 3+ throughout. Objective Labs Result Diagrams: 03/18/22 14:55 03/18/22 14:55 Labs: Laboratory Results - last 24 hr 03/18/22 03/18/22 03/18/22 14:55 14:55 15:30 WBC 8.3 RBC 3.98 L Hgb 12.2 Hct 35.7 L MCV 89.6 MCH 30.7 MCHC 34.3 RDW 14.5 Plt Count 322 Neut % (Auto) 70.8 Lymph % (Auto) 18.1 L [place] % (Auto) 8.0 Eos % (Auto) 2.2 Baso % (Auto) 0.9 Neut # (Auto) 5900 Lymph # (Auto) 1500 [place] # (Auto) 700 Eos # (Auto) 200 Baso # (Auto) 100 Sodium 136 L Potassium 4.0 Chloride 105 Carbon Dioxide 24 BUN 15 Creatinine 0.76 Estimated GFR > 60 BUN/Creatinine Ratio 19.7 Glucose 95 Uric Acid 5.8 Calcium 8.9 Total Bilirubin 0.4 AST 110 H ALT 154 H Alkaline Phosphatase 171 H Lactate Dehydrogenase 812 H Total Protein 7.2 Albumin 3.8 Globulin 3.4 Albumin/Globulin Ratio 1.1 U Random Total Protein 37 H Urine Creatinine 64.5 Protein/Creatinin Ratio 0.57 Assessment & Plan Assessment and plan (1) Preeclampsia in period: Status: Acute Assessment & Plan narrative: This patient is admitted with preeclampsia with severe features in the period, with sustained severe range blood pressures. Her BPs responded well to nifedipine, and she was started on magnesium sulfate per protocol. She will remain on magnesium sulfate for 24 hours, as below. - s/p 4g MgSO4 loading dose, for 2g/hr with trended Mg levels - Regular diet late this PM if tolerating PO well, no nausea - PIH labs q6 hours along with Mg level - bedrest with BRP - SCDs while sedentary - Strict I&O - Will continue to monitor BPs- considering nifedipine XR based on trend - BPs qhr as now stabilized. Time Spent With Patient Critical Care time: I spent a total of [] minutes of critical care time on this patient's care today; this time is exclusive of procedural time.
[2022-03-18] MEDS: IBUPROFEN 600 MG TABLET PO (19:06)
[2022-03-18] MEDS: OXYCODONE IR 5 MG TABLET PO (19:56)
--- NOTE | 2022-03-18 20:28 | P.PNOB_ITS ---
Subjective - OB Subjective Narrative: This patient is HD#1, admitted 5 days with preeclampsia with severe features as evidenced with sustained severe range BPs and elevated LFTs, though she does not meet diagnostic criteria for HELLP. She is now on MgSO4 per protocol for preeclampsia, and tolerating this well with no further severe range BPs. Blood pressure control has been achieved by PO nifedipine. She reports some double vision with the magnesium and a level is ordered. Date Patient Seen: 03/20/22 Time Patient Seen: 20:00 Exam Vital Signs (past 8 hours): - 03/18/22 14:46 03/18/22 14:51 03/18/22 14:56 Temperature Pulse Rate 90 71 64 Respiratory Rate 16 16 16 Blood Pressure 166/105 H 163/99 H 153/93 H Pulse Oximetry 98 100 100 03/18/22 15:12 03/18/22 15:24 03/18/22 15:34 Temperature Pulse Rate 64 67 77 Respiratory Rate 16 16 16 Blood Pressure 150/113 H 177/98 H 149/91 H Pulse Oximetry 100 03/18/22 15:51 03/18/22 15:54 03/18/22 16:04 Temperature 98.2 F Pulse Rate 74 82 Respiratory Rate 16 16 Blood Pressure 143/91 H 143/91 H Pulse Oximetry 100 100 03/18/22 16:14 03/18/22 16:24 03/18/22 16:54 Temperature Pulse Rate 83 79 91 H Respiratory Rate 16 16 16 Blood Pressure 143/90 H 147/93 H 130/74 Pulse Oximetry 97 99 99 03/18/22 17:24 03/18/22 18:54 Temperature Pulse Rate 80 95 H Respiratory Rate 16 16 Blood Pressure 123/68 152/86 H Pulse Oximetry 98 100 Const General: cooperative Orientation: alert, awake and oriented x3 Resp Effort & Inspection: normal respiratory effort Auscultation: clear to auscultation bilaterally Cardio Rate: regular rate Rhythm: regular rhythm GI Palpation: soft and No tender Neuro Cranial Nerves: CN's II-XI intact bilaterally Cognition: normal cognition Speech: speech normal DTR's: Rt Patellar: 1+ and Lt Patellar: 1+ Objective Labs Result Diagrams: 03/20/22 05:57 03/20/22 05:57 Labs: Laboratory Results - last 24 hr 05/02/22 05/02/22 05/02/22 14:55 14:55 15:30 WBC 8.3 RBC 3.98 L Hgb 12.2 Hct 35.7 L MCV 89.6 MCH 30.7 MCHC 34.3 RDW 14.5 Plt Count 322 Neut % (Auto) 70.8 Lymph % (Auto) 18.1 L [place] % (Auto) 8.0 Eos % (Auto) 2.2 Baso % (Auto) 0.9 Neut # (Auto) 5900 Lymph # (Auto) 1500 [place] # (Auto) 700 Eos # (Auto) 200 Baso # (Auto) 100 Sodium 136 L Potassium 4.0 Chloride 105 Carbon Dioxide 24 BUN 15 Creatinine 0.76 Estimated GFR > 60 BUN/Creatinine Ratio 19.7 Glucose 95 Uric Acid 5.8 Calcium 8.9 Total Bilirubin 0.4 AST 110 H ALT 154 H Alkaline Phosphatase 171 H Lactate Dehydrogenase 812 H Total Protein 7.2 Albumin 3.8 Globulin 3.4 Albumin/Globulin Ratio 1.1 U Random Total Protein 37 H Urine Creatinine 64.5 Protein/Creatinin Ratio 0.57 Assessment & Plan Assessment and Plan (1) Preeclampsia in period: Problem details: This patient is admitted for severe preeclampsia, tolerating magnesium sulfate well. She is stable though has a headache being managed with medications. Repeat labs ordered q6 with Mg level. - BPs q30 minutes - Q2 hr neuro checks - BR with assisted bathroom privileges - Strict I&Os - COntinue MgSo4 for 24 hours - For ER PO nifedipine in AM - Notify physician with 160/110 BPs or worsening symptoms Status: Acute Time Spent With Patient Time: Total time spent is greater than 50% in coordination of care (as documented) at patient's floor/unit and/or counseling patient: Time with patient: Greater than 35 minutes
[2022-03-18] MEDS: diphenhydrAMINE 25 MG TABLET PO (21:50)
[2022-03-18] MEDS: METOCLOPRAMIDE HCL 10 MG TABLET PO (21:50)
[2022-03-18 22:59] LABS: Add Manual Diff / Slide Review NO; Basophils Absolute Auto 100 /uL (0-100); Basophils Percent Auto 0.8 % (0-2); Eosinophils Absolute Auto 200 /uL (0-450); Eosinophils Percent Auto 2.2 % (2-4); Hematocrit 40.5 % (36-46); Hemoglobin 13.8 g/dL (12.0-16.0); Lymphocytes Absolute Auto 1400 /uL (1100-4500); Mean Corpuscular Hemoglobin 30.6 PG (26-34); Mean Corpuscular Volume 90.1 fL (80-100); Monocytes Absolute Auto 700 /uL (0-900); Monocytes Percent Auto 9.4 % (3-14); Neutrophils Absolute Auto 5400 /uL (1500-7000); Neutrophils Percent Auto 69.6 % (50-75); Platelet Count 341 X10^3/uL (150-400); Red Cell Distribution Width 14.5 % (11.6-14.8); White Blood Cell Count 7.8 X10^3/uL (4.5-11.0)
[2022-03-18 23:05] LABS: Alanine Aminotransferase 152 IU/L (<35); Albumin 4.1 g/dL (3.5-5.0); Albumin Globulin Ratio 1.1 (1.0-2.8); Alkaline Phosphatase 187 U/L (38-126); Aspartate Aminotransferase 96 IU/L (14-36); BUN Creatinine Ratio 16.4 (6-22); Bilirubin Total 0.5 mg/dL (0.2-1.3); Blood Urea Nitrogen 11 mg/dL (7-17); Calcium 7.9 mg/dL (8.4-10.2); Carbon Dioxide 24 mmol/L (22-32); Chloride 103 mmol/L (98-107); Estimated Glomerular Filt Rate > 60 mL/min (>60); Globulin 3.7 g/dL (1.7-4.1); Glucose 114 mg/dL (70-100); HEMOLYSIS 21 (0-50); Lactate Dehydrogenase 845 U/L (313-618); Potassium 4.1 mmol/L (3.4-5.1); Sodium 137 mmol/L (137-145); Total Protein 7.8 g/dL (6.3-8.2); Uric Acid 5.8 mg/dL (2.5-6.2)
[2022-03-18 23:47] LABS: Magnesium 5.4 mg/dL (1.6-2.3)
[2022-03-19] VITALS (29 sets, daily range): BP systolic 117–167; BP diastolic 71–108; PULSE 68–110; RESP 16–20; TEMP 36.4–36.7; O2SAT 95–99
[2022-03-19] MEDS: OXYCODONE IR 5 MG TABLET PO ×2 (00:03→22:00)
[2022-03-19] MEDS: NIFEdipine 10 MG CAPSULE PO ×3 (00:03→12:11)
--- NOTE | 2022-03-19 01:09 | PC.NURSE ---
pt finally calm and resting after anxiety, overwhelm, crying feeling generally uncomfortable. H/A earlier in the shift @2200 10-pt advised to lower bed in laying position-use ice packs and medications for AZUL pain ordered by Gillham-pain resolved to 03/26 and pt able to sleep-will continue on medication schedule BP increased see meditech to 155/95 @2139-call to Gillham to report change- V/O for Nifedapine 10 -post Nifedapine BP 117/78 @0048 Pt swollen in legs and feet bilateraly w R foot +3/ L foot +1-absent of any clonus, Reflexes normal-breathing clear-pt diuresing well large amounts POC to continue maintenance Mag through the school bus monitor BPs Q1hr and reassess and redose with nfedapine ER per Dr. Terry to create POC in AM All pressures and assessment reported to provider-labs resulted and are trending in same range Mag level drawn @ 2230 and Within normal range see laboratory results in [facility] present and supportive, caring for baby-Pt bonding and BF w baby girl on demand
[2022-03-19] MEDS: IBUPROFEN 600 MG TABLET PO ×4 (01:28→20:36)
[2022-03-19] MEDS: MAGNESIUM SULFATE 20 GM/500 ML IV.SOLN IV (01:29)
[2022-03-19 05:57] LABS: Add Manual Diff / Slide Review NO; Basophils Absolute Auto 100 /uL (0-100); Basophils Percent Auto 0.6 % (0-2); Eosinophils Absolute Auto 200 /uL (0-450); Hematocrit 39.3 % (36-46); Hemoglobin 13.4 g/dL (12.0-16.0); Lymphocytes Absolute Auto 1300 /uL (1100-4500); Lymphocytes Percent Auto 16.2 % (25-40); Mean Corpuscular HGB Conc 34.2 % (30-36); Mean Corpuscular Hemoglobin 30.7 PG (26-34); Mean Corpuscular Volume 89.7 fL (80-100); Monocytes Absolute Auto 800 /uL (0-900); Monocytes Percent Auto 9.8 % (3-14); Neutrophils Absolute Auto 5700 /uL (1500-7000); Neutrophils Percent Auto 70.4 % (50-75); Platelet Count 340 X10^3/uL (150-400); Red Blood Cell Count 4.38 X10^6/uL (4.0-5.2); Red Cell Distribution Width 14.4 % (11.6-14.8); White Blood Cell Count 8.1 X10^3/uL (4.5-11.0)
[2022-03-19 06:03] LABS: Alanine Aminotransferase 133 IU/L (<35); Albumin 3.7 g/dL (3.5-5.0); Albumin Globulin Ratio 1.1 (1.0-2.8); Alkaline Phosphatase 182 U/L (38-126); Aspartate Aminotransferase 79 IU/L (14-36); BUN Creatinine Ratio 15.2 (6-22); Bilirubin Total 0.3 mg/dL (0.2-1.3); Bilirubin Unconjugated 0.5 mg/dL (0.0-1.1); Blood Urea Nitrogen 10 mg/dL (7-17); Calcium 6.9 mg/dL (8.4-10.2); Carbon Dioxide 23 mmol/L (22-32); Chloride 103 mmol/L (98-107); Estimated Glomerular Filt Rate > 60 mL/min (>60); Globulin 3.5 g/dL (1.7-4.1); Glucose 101 mg/dL (70-100); HEMOLYSIS < 15 (0-50); Potassium 3.8 mmol/L (3.4-5.1); Sodium 134 mmol/L (137-145); Total Protein 7.2 g/dL (6.3-8.2)
[2022-03-19 06:10] LABS: Magnesium 6.1 mg/dL (1.6-2.3)
--- NOTE | 2022-03-19 07:40 | PC.NURSE ---
report given to day shift AW-Eqorayf-de resting comfortably-full report to Dr. Terry on the floor to check in-[place] reported to day shift RN BOYD
--- NOTE | 2022-03-19 07:44 | PC.NURSE ---
RN received report from RAYA Richard. At bedside with night worker RN and traced IV lines as well as greeted pt. Pt continues to rest with eyes closed, significant other and at bedside. POC discussed with Dr. Terry to include initiating PO Nifedipine XL 30 mg today and to continue MgSO4 therapy. Will continue to assess BP and symptoms to determine ongoing care and plan.
--- NOTE | 2022-03-19 07:47 | PM.OBPN.1 ---
Subjective - OB Subjective Narrative: This patient is a 37yo, HD#2 s/p admission for preeclampsia with severe features. The patient has been on a magnesium sulfate drip with theraputic magnesium levels. Her headache is improved, and she is tolerating PO this AM. She is diuresing, with several voids of almost a liter overnight. Her BPs are responding well to PO nifedipine, and she was started on 30mg XR this AM. LFTs are downtrending. Date Patient Seen: 03/19/22 Time Patient Seen: 08:30 Exam Vital Signs (past 8 hours): - 03/19/22 00:05 03/19/22 00:48 03/19/22 01:20 Pulse Rate 73 93 H 79 Respiratory Rate 18 18 18 Blood Pressure 156/84 H 117/78 157/88 H Pulse Oximetry 95 03/19/22 01:50 03/19/22 02:20 03/19/22 02:50 Pulse Rate 95 H 77 75 Respiratory Rate 17 18 18 Blood Pressure 126/74 132/71 132/75 Pulse Oximetry 03/19/22 03:35 03/19/22 03:50 03/19/22 04:00 Pulse Rate 85 72 Respiratory Rate 18 17 18 Blood Pressure 150/97 H 158/97 H 145/82 H Pulse Oximetry 99 03/19/22 04:20 03/19/22 05:20 03/19/22 05:50 Pulse Rate 72 71 Respiratory Rate 18 18 18 Blood Pressure 141/102 H 136/83 147/72 H Pulse Oximetry 03/19/22 06:20 03/19/22 07:22 Pulse Rate 68 81 Respiratory Rate 18 18 Blood Pressure 139/88 142/95 H Pulse Oximetry Narrative Exam Narrative: Patient reports mild double vision but otherwise doing well. Const General: cooperative Resp Effort & Inspection: normal respiratory effort Auscultation: clear to auscultation bilaterally Cardio Rate: regular rate Rhythm: regular rhythm GI Palpation: soft and No tender Neuro DTR's: Rt Ankle: 1+ and Lt Ankle: 1+ Extrem Other: LE edema 1+, improved since last night Objective Labs Result Diagrams: 03/19/22 05:35 03/19/22 05:35 Labs: Laboratory Results - last 24 hr 03/18/22 03/18/22 03/18/22 14:55 14:55 15:30 WBC 8.3 RBC 3.98 L Hgb 12.2 Hct 35.7 L MCV 89.6 MCH 30.7 MCHC 34.3 RDW 14.5 Plt Count 322 Neut % (Auto) 70.8 Lymph % (Auto) 18.1 L [place] % (Auto) 8.0 Eos % (Auto) 2.2 Baso % (Auto) 0.9 Neut # (Auto) 5900 Lymph # (Auto) 1500 [place] # (Auto) 700 Eos # (Auto) 200 Baso # (Auto) 100 Sodium 136 L Potassium 4.0 Chloride 105 Carbon Dioxide 24 BUN 15 Creatinine 0.76 Estimated GFR > 60 BUN/Creatinine Ratio 19.7 Glucose 95 Uric Acid 5.8 Calcium 8.9 Magnesium Total Bilirubin 0.4 Conjugated Bilirubin Unconjugated Bilirubin AST 110 H ALT 154 H Alkaline Phosphatase 171 H Lactate Dehydrogenase 812 H Total Protein 7.2 Albumin 3.8 Globulin 3.4 Albumin/Globulin Ratio 1.1 U Random Total Protein 37 H Urine Creatinine 64.5 Protein/Creatinin Ratio 0.57 03/18/22 03/18/22 03/18/22 22:33 22:33 22:33 WBC 7.8 RBC 4.50 Hgb 13.8 Hct 40.5 MCV 90.1 MCH 30.6 MCHC 34.0 RDW 14.5 Plt Count 341 Neut % (Auto) 69.6 Lymph % (Auto) 18.0 L [place] % (Auto) 9.4 Eos % (Auto) 2.2 Baso % (Auto) 0.8 Neut # (Auto) 5400 Lymph # (Auto) 1400 [place] # (Auto) 700 Eos # (Auto) 200 Baso # (Auto) 100 Sodium 137 Potassium 4.1 Chloride 103 Carbon Dioxide 24 BUN 11 Creatinine 0.67 Estimated GFR > 60 BUN/Creatinine Ratio 16.4 Glucose 114 H Uric Acid 5.8 Calcium 7.9 L Magnesium 5.4 H* Total Bilirubin 0.5 Conjugated Bilirubin Unconjugated Bilirubin AST 96 H ALT 152 H Alkaline Phosphatase 187 H Lactate Dehydrogenase 845 H Total Protein 7.8 Albumin 4.1 Globulin 3.7 Albumin/Globulin Ratio 1.1 U Random Total Protein Urine Creatinine Protein/Creatinin Ratio 03/19/22 03/19/22 03/19/22 05:35 05:35 05:35 WBC 8.1 RBC 4.38 Hgb 13.4 Hct 39.3 MCV 89.7 MCH 30.7 MCHC 34.2 RDW 14.4 Plt Count 340 Neut % (Auto) 70.4 Lymph % (Auto) 16.2 L [place] % (Auto) 9.8 Eos % (Auto) 3.0 Baso % (Auto) 0.6 Neut # (Auto) 5700 Lymph # (Auto) 1300 [place] # (Auto) 800 Eos # (Auto) 200 Baso # (Auto) 100 Sodium 134 L Potassium 3.8 Chloride 103 Carbon Dioxide 23 BUN 10 Creatinine 0.66 Estimated GFR > 60 BUN/Creatinine Ratio 15.2 Glucose 101 H Uric Acid Calcium 6.9 L Magnesium 6.1 H* Total Bilirubin 0.3 Conjugated Bilirubin 0.0 Unconjugated Bilirubin 0.5 AST 79 H ALT 133 H Alkaline Phosphatase 182 H Lactate Dehydrogenase Total Protein 7.2 Albumin 3.7 Globulin 3.5 Albumin/Globulin Ratio 1.1 U Random Total Protein Urine Creatinine Protein/Creatinin Ratio Assessment & Plan Assessment and Plan (1) Preeclampsia in period: Start date: 03/18/22 Problem details: This patient is admitted for 24 hours of magnesium sulfate for severe preeclampsia. She is overall improving with normalizing labs and diuresing. - Continue MgSo4 until 24 hours - Repeat labs at 13:00 - Monitor BPs after 1st dose of 30mg PO XR Nifedipine this AM - Discussed period of monitoring after magnesium drip discontinued, patient strongly desires discharge this evening. Status: Acute Time Spent With Patient Time: Total time spent is greater than 50% in coordination of care (as documented) at patient's floor/unit and/or counseling patient: Time with patient: 25 - 35 minutes
[2022-03-19] MEDS: NIFEdipine 30 MG TAB ER PO ×2 (08:05→12:11)
--- NOTE | 2022-03-19 10:34 | PC.NURSE ---
RN placed call to Dr. Benavides to follow up on pt's blood pressure. No answer, will return call shortly.
--- NOTE | 2022-03-19 10:52 | PC.NURSE ---
RN received VO from Dr. Terry for Nifedipine 10 mg NOW and to recheck pt's BP in 10 minutes following administration. Administered at 1049 and BP at that time was 174/104, will recheck in 10 minutes. Pt reports feeling well and AZUL is manageable.
--- NOTE | 2022-03-19 11:11 | PC.NURSE ---
Blood pressure following Nifedipine 10 mg administration at 1049 was 150/101. RN placed call to clinic to update MD on BP. POC discussed to include q 30 minute BPs following severe range. Will continue to evaluate for potential discharge if stable, if BP remains unstable and intermittently severe range, discharge option will be evaluated as the day progresses.
[2022-03-19] MEDS: CALCIUM CARBONATE 500 MG TAB 1000 MG PO (11:24)
--- NOTE | 2022-03-19 12:07 | PC.NURSE ---
RN placed call to Dr. Terry to discuss pt's BP of 161/105. POC discussed to include Nifedipine 10 mg NOW PO and Nifedipine XL 30 mg NOW PO. Will consider alternative medication if BP does not respond to doses. RN will continue to monitor.
--- NOTE | 2022-03-19 13:43 | P.PNOB_ITS ---
Subjective - OB Subjective Narrative: This patient is HD#2 admitted with preelampsia with severe features, on MgSO4. Patient has elevated LFTs which are stable though not decreasing, her AZUL is improved, and she has no visual changes, SOB, nausea, or RUQ pain. Patient was started on PO ER nifedipine 30mg this AM, but had recurrent severe range BPs midday. This responded to IR nifedipine per severe HTN protocol, and she was administered another 30mg ER nifedipine PO. Will continue to monitor, with Mg continuing for several hours. Date Patient Seen: 03/19/22 Time Patient Seen: 13:30 Exam Vital Signs (past 8 hours): - 03/19/22 05:50 03/19/22 06:20 03/19/22 07:22 Temperature Pulse Rate 71 68 81 Respiratory Rate 18 18 18 Blood Pressure 147/72 H 139/88 142/95 H Pulse Oximetry 03/19/22 08:00 03/19/22 09:00 03/19/22 10:00 Temperature 98.0 F 98.0 F Pulse Rate 71 108 H Respiratory Rate 16 18 Blood Pressure 139/86 157/99 H 167/98 H Pulse Oximetry 99 99 03/19/22 10:20 03/19/22 10:59 03/19/22 12:00 Temperature 98.0 F Pulse Rate 90 97 H Respiratory Rate 16 16 Blood Pressure 166/108 H 150/101 H 161/105 H Pulse Oximetry 99 99 03/19/22 12:41 03/19/22 13:16 Temperature Pulse Rate 85 Respiratory Rate 16 Blood Pressure 151/98 H 149/94 H Pulse Oximetry 99 Oxygen Delivery Method Room Air Const General: cooperative Resp Effort & Inspection: normal respiratory effort Auscultation: clear to auscultation bilaterally Cardio Rate: regular rate Rhythm: regular rhythm GI Palpation: soft and No tender Extrem Other: 1+ patellar reflexes, 1+ edema Objective Labs Result Diagrams: 03/20/22 05:57 03/20/22 05:57 Labs: Laboratory Results - last 24 hr 03/18/22 03/18/22 03/18/22 14:55 14:55 15:30 WBC 8.3 RBC 3.98 L Hgb 12.2 Hct 35.7 L MCV 89.6 MCH 30.7 MCHC 34.3 RDW 14.5 Plt Count 322 Neut % (Auto) 70.8 Lymph % (Auto) 18.1 L [place] % (Auto) 8.0 Eos % (Auto) 2.2 Baso % (Auto) 0.9 Neut # (Auto) 5900 Lymph # (Auto) 1500 [place] # (Auto) 700 Eos # (Auto) 200 Baso # (Auto) 100 Sodium 136 L Potassium 4.0 Chloride 105 Carbon Dioxide 24 BUN 15 Creatinine 0.76 Estimated GFR > 60 BUN/Creatinine Ratio 19.7 Glucose 95 Uric Acid 5.8 Calcium 8.9 Magnesium Total Bilirubin 0.4 Conjugated Bilirubin Unconjugated Bilirubin AST 110 H ALT 154 H Alkaline Phosphatase 171 H Lactate Dehydrogenase 812 H Total Protein 7.2 Albumin 3.8 Globulin 3.4 Albumin/Globulin Ratio 1.1 U Random Total Protein 37 H Urine Creatinine 64.5 Protein/Creatinin Ratio 0.57 03/18/22 03/18/22 03/18/22 22:33 22:33 22:33 WBC 7.8 RBC 4.50 Hgb 13.8 Hct 40.5 MCV 90.1 MCH 30.6 MCHC 34.0 RDW 14.5 Plt Count 341 Neut % (Auto) 69.6 Lymph % (Auto) 18.0 L [place] % (Auto) 9.4 Eos % (Auto) 2.2 Baso % (Auto) 0.8 Neut # (Auto) 5400 Lymph # (Auto) 1400 [place] # (Auto) 700 Eos # (Auto) 200 Baso # (Auto) 100 Sodium 137 Potassium 4.1 Chloride 103 Carbon Dioxide 24 BUN 11 Creatinine 0.67 Estimated GFR > 60 BUN/Creatinine Ratio 16.4 Glucose 114 H Uric Acid 5.8 Calcium 7.9 L Magnesium 5.4 H* Total Bilirubin 0.5 Conjugated Bilirubin Unconjugated Bilirubin AST 96 H ALT 152 H Alkaline Phosphatase 187 H Lactate Dehydrogenase 845 H Total Protein 7.8 Albumin 4.1 Globulin 3.7 Albumin/Globulin Ratio 1.1 U Random Total Protein Urine Creatinine Protein/Creatinin Ratio 03/19/22 03/19/22 03/19/22 05:35 05:35 05:35 WBC 8.1 RBC 4.38 Hgb 13.4 Hct 39.3 MCV 89.7 MCH 30.7 MCHC 34.2 RDW 14.4 Plt Count 340 Neut % (Auto) 70.4 Lymph % (Auto) 16.2 L [place] % (Auto) 9.8 Eos % (Auto) 3.0 Baso % (Auto) 0.6 Neut # (Auto) 5700 Lymph # (Auto) 1300 [place] # (Auto) 800 Eos # (Auto) 200 Baso # (Auto) 100 Sodium 134 L Potassium 3.8 Chloride 103 Carbon Dioxide 23 BUN 10 Creatinine 0.66 Estimated GFR > 60 BUN/Creatinine Ratio 15.2 Glucose 101 H Uric Acid Calcium 6.9 L Magnesium 6.1 H* Total Bilirubin 0.3 Conjugated Bilirubin 0.0 Unconjugated Bilirubin 0.5 AST 79 H ALT 133 H Alkaline Phosphatase 182 H Lactate Dehydrogenase Total Protein 7.2 Albumin 3.7 Globulin 3.5 Albumin/Globulin Ratio 1.1 U Random Total Protein Urine Creatinine Protein/Creatinin Ratio Assessment & Plan Assessment and Plan (1) Preeclampsia in period: Problem details: This patient is admitted for severe preeclampsia, tolerating magnesium sulfate well. We discussed monitoring until late afternoon, stopping Mg this evening if BPs remain controlled, but monitoring until tomorrow AM. - BPs q30 minutes this afternoon - Q2 hr neuro checks - BR with assisted bathroom privileges - Strict I&Os - COntinue MgSo4 for 24 hours- stop this afternoon - Repeat labs this PM Status: Acute Time Spent With Patient Time: Total time spent is greater than 50% in coordination of care (as documented) at patient's floor/unit and/or counseling patient: Time with patient: 25 - 35 minutes
[2022-03-19 15:10] LABS: Add Manual Diff / Slide Review NO; Basophils Absolute Auto 0 /uL (0-100); Basophils Percent Auto 0.5 % (0-2); Eosinophils Absolute Auto 100 /uL (0-450); Eosinophils Percent Auto 1.6 % (2-4); Hematocrit 45.3 % (36-46); Hemoglobin 15.7 g/dL (12.0-16.0); Lymphocytes Absolute Auto 1200 /uL (1100-4500); Mean Corpuscular HGB Conc 34.6 % (30-36); Mean Corpuscular Hemoglobin 30.6 PG (26-34); Mean Corpuscular Volume 88.4 fL (80-100); Monocytes Absolute Auto 500 /uL (0-900); Monocytes Percent Auto 6.7 % (3-14); Neutrophils Absolute Auto 6100 /uL (1500-7000); Neutrophils Percent Auto 76.2 % (50-75); Platelet Count 400 X10^3/uL (150-400); Red Blood Cell Count 5.12 X10^6/uL (4.0-5.2); Red Cell Distribution Width 14.2 % (11.6-14.8); White Blood Cell Count 7.9 X10^3/uL (4.5-11.0)
[2022-03-19 16:11] LABS: Alanine Aminotransferase 156 IU/L (<35); Albumin 4.5 g/dL (3.5-5.0); Albumin Globulin Ratio 1.1 (1.0-2.8); Alkaline Phosphatase 219 U/L (38-126); Aspartate Aminotransferase 82 IU/L (14-36); BUN Creatinine Ratio 13.2 (6-22); Bilirubin Total 0.4 mg/dL (0.2-1.3); Bilirubin Unconjugated 0.4 mg/dL (0.0-1.1); Blood Urea Nitrogen 10 mg/dL (7-17); Calcium 7.6 mg/dL (8.4-10.2); Carbon Dioxide 27 mmol/L (22-32); Chloride 99 mmol/L (98-107); Estimated Glomerular Filt Rate > 60 mL/min (>60); Globulin 4.1 g/dL (1.7-4.1); Glucose 136 mg/dL (70-100); HEMOLYSIS < 15 (0-50); Sodium 135 mmol/L (137-145); Total Protein 8.6 g/dL (6.3-8.2); Uric Acid 5.7 mg/dL (2.5-6.2)
[2022-03-19 16:13] LABS: Magnesium 6.7 mg/dL (1.6-2.3)
[2022-03-19 16:43] LABS: Creatinine Urine Random 12.2 mg/dL; Protein (Total) Urine Random 32 mg/dL (0-12)
[2022-03-19 16:46] LABS: Protein Creatinine Ratio Urine 2.62 GRAM/24H
--- NOTE | 2022-03-19 16:56 | PC.NURSE ---
RN reviewed patient's labs and blood pressures with Dr. Terry. POC discussed to include discontinuing IV magnesium and continuing to monitor BP closely. MD will come for bedside evaluation and to discuss next steps with patient. RN saline locked IV and discontinued Magnesium Sulfate therapy @ 1645. Reviewed POC with patient and she verbalizes understanding. No needs assessed at this time.
--- NOTE | 2022-03-19 18:29 | PM.OBPN.1 ---
Subjective - OB Subjective Patient comments: no complaints Date Patient Seen: 03/19/22 Time Patient Seen: 18:00 Interval history: This patient is now s/p 24 hours of magnesium sulfate, HD#2 after admission for preeclampsia with severe features. She is on 60mg XR PO nifedipine, and her blood pressure control is improved. She denies AZUL, visual changes, RUQ pain, nausea, or any additional symptoms. She continues to diurese with significantly improved swelling. Exam Vital Signs (past 8 hours): - 03/19/22 10:59 03/19/22 12:00 03/19/22 12:41 Temperature Pulse Rate 97 H Respiratory Rate 16 Blood Pressure 150/101 H 161/105 H 151/98 H Pulse Oximetry 99 03/19/22 13:16 03/19/22 14:00 03/19/22 14:56 Temperature Pulse Rate 85 100 H 89 Respiratory Rate 16 16 Blood Pressure 149/94 H 138/89 139/86 Pulse Oximetry 99 99 99 03/19/22 16:10 Temperature 97.6 F Pulse Rate 87 Respiratory Rate Blood Pressure 148/88 H Pulse Oximetry 99 Oxygen Delivery Method Room Air Const General: cooperative, healthy appearing, comfortable and well groomed Resp Effort & Inspection: normal respiratory effort Auscultation: clear to auscultation bilaterally Cardio Rate: regular rate Rhythm: regular rhythm GI Palpation: soft and No tender Neuro DTR's: Rt Patellar: 1+ and Lt Patellar: 1+ Extrem Other: 1+ LE edema Objective Labs Result Diagrams: 03/20/22 05:57 03/20/22 05:57 Labs: Laboratory Results - last 24 hr 03/18/22 03/18/22 03/18/22 22:33 22:33 22:33 WBC 7.8 RBC 4.50 Hgb 13.8 Hct 40.5 MCV 90.1 MCH 30.6 MCHC 34.0 RDW 14.5 Plt Count 341 Neut % (Auto) 69.6 Lymph % (Auto) 18.0 L [place] % (Auto) 9.4 Eos % (Auto) 2.2 Baso % (Auto) 0.8 Neut # (Auto) 5400 Lymph # (Auto) 1400 [place] # (Auto) 700 Eos # (Auto) 200 Baso # (Auto) 100 Sodium 137 Potassium 4.1 Chloride 103 Carbon Dioxide 24 BUN 11 Creatinine 0.67 Estimated GFR > 60 BUN/Creatinine Ratio 16.4 Glucose 114 H Uric Acid 5.8 Calcium 7.9 L Magnesium 5.4 H* Total Bilirubin 0.5 Conjugated Bilirubin Unconjugated Bilirubin AST 96 H ALT 152 H Alkaline Phosphatase 187 H Lactate Dehydrogenase 845 H Total Protein 7.8 Albumin 4.1 Globulin 3.7 Albumin/Globulin Ratio 1.1 U Random Total Protein Urine Creatinine Protein/Creatinin Ratio 03/19/22 03/19/22 03/19/22 05:35 05:35 05:35 WBC 8.1 RBC 4.38 Hgb 13.4 Hct 39.3 MCV 89.7 MCH 30.7 MCHC 34.2 RDW 14.4 Plt Count 340 Neut % (Auto) 70.4 Lymph % (Auto) 16.2 L [place] % (Auto) 9.8 Eos % (Auto) 3.0 Baso % (Auto) 0.6 Neut # (Auto) 5700 Lymph # (Auto) 1300 [place] # (Auto) 800 Eos # (Auto) 200 Baso # (Auto) 100 Sodium 134 L Potassium 3.8 Chloride 103 Carbon Dioxide 23 BUN 10 Creatinine 0.66 Estimated GFR > 60 BUN/Creatinine Ratio 15.2 Glucose 101 H Uric Acid Calcium 6.9 L Magnesium 6.1 H* Total Bilirubin 0.3 Conjugated Bilirubin 0.0 Unconjugated Bilirubin 0.5 AST 79 H ALT 133 H Alkaline Phosphatase 182 H Lactate Dehydrogenase Total Protein 7.2 Albumin 3.7 Globulin 3.5 Albumin/Globulin Ratio 1.1 U Random Total Protein Urine Creatinine Protein/Creatinin Ratio 03/19/22 03/19/22 03/19/22 13:00 13:00 16:15 WBC 7.9 RBC 5.12 Hgb 15.7 Hct 45.3 MCV 88.4 MCH 30.6 MCHC 34.6 RDW 14.2 Plt Count 400 Neut % (Auto) 76.2 H Lymph % (Auto) 15.0 L [place] % (Auto) 6.7 Eos % (Auto) 1.6 L Baso % (Auto) 0.5 Neut # (Auto) 6100 Lymph # (Auto) 1200 [place] # (Auto) 500 Eos # (Auto) 100 Baso # (Auto) 0 Sodium 135 L Potassium 4.0 Chloride 99 Carbon Dioxide 27 BUN 10 Creatinine 0.76 Estimated GFR > 60 BUN/Creatinine Ratio 13.2 Glucose 136 H Uric Acid 5.7 Calcium 7.6 L Magnesium 6.7 H* Total Bilirubin 0.4 Conjugated Bilirubin 0.0 Unconjugated Bilirubin 0.4 AST 82 H ALT 156 H Alkaline Phosphatase 219 H Lactate Dehydrogenase Total Protein 8.6 H Albumin 4.5 Globulin 4.1 Albumin/Globulin Ratio 1.1 U Random Total Protein 32 H Urine Creatinine 12.2 Protein/Creatinin Ratio 2.62 Assessment & Plan Assessment and Plan (1) Preeclampsia in period: Problem details: This patient is admitted for severe preeclampsia. She is overall improving with normalizing labs and diuresing. - s/p mgSO4 - Repeat labs in AM - Close monitoring of BPs - for 60mg ER PO nifedipine in AM Status: Acute Plan day: 7 Time Spent With Patient Time: Total time spent is greater than 50% in coordination of care (as documented) at patient's floor/unit and/or counseling patient: Time with patient: 15-24 minutes
--- NOTE | 2022-03-19 18:41 | PC.NURSE ---
Dr. Terry at bedside to discuss POC with patient and family including observation overnight to continue to monitor BP, AM nifedipine 60 mg xl PO, q 2 hour BPs. Pt verbalizes understanding, feels reassured by POC and denies any further questions or concerns at this time.
--- NOTE | 2022-03-19 21:04 | PC.NURSE ---
discussed POC with pt and family, ie: shower tonight, rest, ankle waves, calf pumps expained rationale for such. only up to bathroom tonight, maintain calm quiet room. B/P q 2 hours during the night, continue with medications and plan to discharge tomorrow if b/p stable. pt has no other questions at this time. cont to monitor.
--- NOTE | 2022-03-19 21:07 | PC.NURSE ---
DTR's 1+ upper and lower ext without clonus, pt denies any blurry vision or floaters, denies nausea or right upper quad pain. 2-3+ pitting edema to lower extremites, advised ankle waves, calf pumps w/a. only up to bathroom at this time.
[2022-03-20 00:45] VITALS: BP 143/94; PULSE 93
--- NOTE | 2022-03-20 01:07 | PC.NURSE ---
Pt states that her headache is now at a '2. assisted with positioning baby in side lying for feeding. b/p 143/94, sitting position. no needs at this time. continue to monitor.
--- NOTE | 2022-03-20 04:04 | PC.NURSE ---
pt sleeping soundly in left lateral position. babe in [facility]. allowed to sleep
[2022-03-20 05:48] VITALS: BP 131/82; PULSE 89; RESP 18; TEMP 36.8
[2022-03-20] MEDS: IBUPROFEN 600 MG TABLET PO ×2 (05:50→11:59)
--- NOTE | 2022-03-20 05:59 | PC.NURSE ---
05:48 RN at bedside to get vitals, patient was asleep when entering the room. vitals obtained. Patient requesting ibuprofen for headache 3/10 scale. Medication given. Patient doing well, was happy to hear that her blood pressure was WNL. No issues or concerns at this time.
[2022-03-20 06:06] LABS: Add Manual Diff / Slide Review NO; Basophils Absolute Auto 100 /uL (0-100); Eosinophils Absolute Auto 200 /uL (0-450); Eosinophils Percent Auto 3.3 % (2-4); Hematocrit 43.2 % (36-46); Hemoglobin 14.7 g/dL (12.0-16.0); Lymphocytes Absolute Auto 1300 /uL (1100-4500); Lymphocytes Percent Auto 18.1 % (25-40); Mean Corpuscular HGB Conc 34.1 % (30-36); Mean Corpuscular Hemoglobin 30.6 PG (26-34); Mean Corpuscular Volume 89.7 fL (80-100); Monocytes Absolute Auto 600 /uL (0-900); Monocytes Percent Auto 8.6 % (3-14); Neutrophils Absolute Auto 4900 /uL (1500-7000); Platelet Count 404 X10^3/uL (150-400); Red Blood Cell Count 4.81 X10^6/uL (4.0-5.2); Red Cell Distribution Width 14.2 % (11.6-14.8); White Blood Cell Count 7.1 X10^3/uL (4.5-11.0)
[2022-03-20 06:18] LABS: Alanine Aminotransferase 112 IU/L (<35); Albumin 4.1 g/dL (3.5-5.0); Albumin Globulin Ratio 1.1 (1.0-2.8); Alkaline Phosphatase 178 U/L (38-126); Aspartate Aminotransferase 51 IU/L (14-36); BUN Creatinine Ratio 14.1 (6-22); Bilirubin Total 0.5 mg/dL (0.2-1.3); Blood Urea Nitrogen 11 mg/dL (7-17); Calcium 8.2 mg/dL (8.4-10.2); Carbon Dioxide 26 mmol/L (22-32); Chloride 103 mmol/L (98-107); Estimated Glomerular Filt Rate > 60 mL/min (>60); Globulin 3.6 g/dL (1.7-4.1); Glucose 93 mg/dL (70-100); HEMOLYSIS < 15 (0-50); Potassium 4.5 mmol/L (3.4-5.1); Sodium 136 mmol/L (137-145); Total Protein 7.7 g/dL (6.3-8.2)
[2022-03-20] MEDS: NIFEdipine 30 MG TAB ER 60 MG PO (06:21)
[2022-03-20 08:05] VITALS: BP 138/84; PULSE 82; RESP 16; O2SAT 99
--- NOTE | 2022-03-20 10:19 | P.DS_ITS ---
Discharge Providers Provider Date of admission: 03/18/22 14:35 Discharge Date: 03/20/22 Primary care physician: Rasheed Marlow DO Discharge provider: Leigh Terry MD Summary Hospital Course Date Patient Seen: 03/20/22 Time Patient Seen: 10:20 Diagnoses: preeclampsia with severe features Hospital Course: This patient was admitted for preeclampsia with severe features, with sustained severe range blood pressures and elevated liver function tests, though normal platelets and no signs of hemolysis. She was treated with 24 hours of MgSO4, and her blood pressures were brought under control with PO nifedipine to good effect. She was monitored until HD#3 to ensure blood pressure control, and her LFTs trended towards normal. She was discharged on HD#3 on 60m PO ER nifedipine daily, with close outpatient follow up. Discharge Diagnosis (1) Preeclampsia in period: Status: Acute Problem Details: This patient is admitted for severe preeclampsia. She is overall improving with normalizing labs and diuresing, now with good BP control 130s- 140s/80s on PO nifedipine. After discussion of precautions for return, she was discharged home with plan for repeat BP check tomorrow. - s/p mgSO4 - f/u BP check in clinic tomorrow - 60m PO ER nifedipine qAM Status at Discharge Cognitive/behavioral status at discharge: oriented Functional status at discharge: independent ambulation Overall status at discharge: patient is progressing back to baseline Time Spent with Patient Time attestation: Total time spent providing and/or coordinating discharge services: Objective Labs Result Diagrams: 03/20/22 05:57 03/20/22 05:57 Labs: Laboratory Results - last 24 hr 03/19/22 03/19/22 03/19/22 13:00 13:00 16:15 WBC 7.9 RBC 5.12 Hgb 15.7 Hct 45.3 MCV 88.4 MCH 30.6 MCHC 34.6 RDW 14.2 Plt Count 400 Neut % (Auto) 76.2 H Lymph % (Auto) 15.0 L [place] % (Auto) 6.7 Eos % (Auto) 1.6 L Baso % (Auto) 0.5 Neut # (Auto) 6100 Lymph # (Auto) 1200 [place] # (Auto) 500 Eos # (Auto) 100 Baso # (Auto) 0 Sodium 135 L Potassium 4.0 Chloride 99 Carbon Dioxide 27 BUN 10 Creatinine 0.76 Estimated GFR > 60 BUN/Creatinine Ratio 13.2 Glucose 136 H Uric Acid 5.7 Calcium 7.6 L Magnesium 6.7 H* Total Bilirubin 0.4 Conjugated Bilirubin 0.0 Unconjugated Bilirubin 0.4 AST 82 H ALT 156 H Alkaline Phosphatase 219 H Total Protein 8.6 H Albumin 4.5 Globulin 4.1 Albumin/Globulin Ratio 1.1 U Random Total Protein 32 H Urine Creatinine 12.2 Protein/Creatinin Ratio 2.62 03/20/22 03/20/22 05:57 05:57 WBC 7.1 RBC 4.81 Hgb 14.7 Hct 43.2 MCV 89.7 MCH 30.6 MCHC 34.1 RDW 14.2 Plt Count 404 H Neut % (Auto) 69.0 Lymph % (Auto) 18.1 L [place] % (Auto) 8.6 Eos % (Auto) 3.3 Baso % (Auto) 1.0 Neut # (Auto) 4900 Lymph # (Auto) 1300 [place] # (Auto) 600 Eos # (Auto) 200 Baso # (Auto) 100 Sodium 136 L Potassium 4.5 Chloride 103 Carbon Dioxide 26 BUN 11 Creatinine 0.78 Estimated GFR > 60 BUN/Creatinine Ratio 14.1 Glucose 93 Uric Acid Calcium 8.2 L Magnesium Total Bilirubin 0.5 Conjugated Bilirubin Unconjugated Bilirubin AST 51 H ALT 112 H Alkaline Phosphatase 178 H Total Protein 7.7 Albumin 4.1 Globulin 3.6 Albumin/Globulin Ratio 1.1 U Random Total Protein Urine Creatinine Protein/Creatinin Ratio Exam Vital Signs (past 8 hours): - 03/20/22 05:48 03/20/22 08:05 Temperature 98.2 F Pulse Rate 89 82 Respiratory Rate 18 16 Blood Pressure 131/82 138/84 Pulse Oximetry 99 Oxygen Delivery Method Room Air Const General: cooperative, healthy appearing, comfortable and well groomed Resp Effort & Inspection: normal respiratory effort Auscultation: clear to auscultation bilaterally Cardio Rate: regular rate Rhythm: regular rhythm GI Palpation: soft and No tender (fundus firm, well below u) Neuro DTR's: Rt Patellar: 2+ and Lt Patellar: 2+ Extrem General: no pedal edema Discharge Plan Discharge Plan Patient Disposition: Home Discharge orders & Medications Prescriptions: New nifedipine 60 mg tablet extended release 60 mg PO DAILY Qty: 30 0RF Rx Instructions: Take once daily in AM. 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 Avoid heavy lifting or strenuous activity. If you have a headache, visual changes, chest pain, upper abdominal pain, nausea, or any other symptoms, call or come to the emergency room. Skin/Wound/Dressing Care Report to your healthcare provider any signs of infection, such as:: chills, fever, night sweats, increased pain, unusual drainage and unusual redness Visit Report/Discharge Packet Instructions: Pre-eclampsia Discharge Data Primary Care Provider: Rasheed Marlow
[2022-03-20 11:51] VITALS: BP 131/90; PULSE 97; RESP 18; O2SAT 99
== END 2022-03-20 12:15 | disposition home or self-care (01) | DRG 561 ==
PROVIDERS: Admitting Provider Obstetrics & Gynecology; PCP Family Medicine; Referring Provider Nurse Practitioner Obstetrics & Gynecology; Visit Provider Obstetrics & Gynecology
DX: O14.15 Severe pre-eclampsia, complicating the puerperium (principal)
CPT/HCPCS: 36415; 80053; 80076; 82570; 83615; 83735; 84156; 84550; 85025; 93005; 93010; G0379; J3475

== ENCOUNTER → 2023-01-24 09:11 | Outpatient (CLI) | payer BC, SELFPAY ==
[2022-03-18 16:38] VITALS: BMI 27.3
[2023-01-24 11:44] LABS: Add Manual Diff / Slide Review NO; Basophils Absolute Auto 0 /uL (0-100); Eosinophils Absolute Auto 200 /uL (0-450); Eosinophils Percent Auto 4.5 % (2-4); Hematocrit 46.8 % (36-46); Hemoglobin 15.7 g/dL (12.0-16.0); Lymphocytes Absolute Auto 1500 /uL (1100-4500); Mean Corpuscular HGB Conc 33.5 % (30-36); Mean Corpuscular Hemoglobin 30.5 PG (26-34); Mean Corpuscular Volume 91.1 fL (80-100); Monocytes Absolute Auto 300 /uL (0-900); Monocytes Percent Auto 7.7 % (3-14); Neutrophils Absolute Auto 2200 /uL (1500-7000); Neutrophils Percent Auto 51.8 % (50-75); Platelet Count 403 X10^3/uL (150-400); Red Blood Cell Count 5.13 X10^6/uL (4.0-5.2); Red Cell Distribution Width 13.2 % (11.6-14.8); White Blood Cell Count 4.3 X10^3/uL (4.5-11.0)
[2023-01-24 12:01] LABS: Alanine Aminotransferase 20 IU/L (<35); Albumin 4.8 g/dL (3.5-5.0); Albumin Globulin Ratio 1.3 (1.0-2.8); Alkaline Phosphatase 111 U/L (38-126); Aspartate Aminotransferase 27 IU/L (14-36); BUN Creatinine Ratio 23.6 (6-22); Bilirubin Total 0.8 mg/dL (0.2-1.3); Blood Urea Nitrogen 17 mg/dL (7-17); Calcium 9.6 mg/dL (8.4-10.2); Carbon Dioxide 30 mmol/L (22-32); Chloride 102 mmol/L (98-107); Cholesterol 253 mg/dL (140-199); Estimated Glomerular Filt Rate > 60 mL/min (>60); Globulin 3.7 g/dL (1.7-4.1); Glucose 92 mg/dL (70-100); HDL Cholesterol 78 mg/dL (40-60); HEMOLYSIS < 15 (0-50); LDL Cholesterol Calculated 165 mg/dL (<100); Sodium 139 mmol/L (137-145); Total Protein 8.5 g/dL (6.3-8.2); Triglycerides 49 mg/dL (35-150)
[2023-01-24 12:17] LABS: Vitamin D 25 Hydroxy (D3) 51.6 ng/mL (30.0-100.0)
[2023-01-24 12:32] LABS: TSH w/ Reflex to FT4 0.75 uIU/mL (0.47-4.68)
== END ==
PROVIDERS: PCP Family Medicine; Referring Provider Family Medicine; Visit Provider Family Medicine
DX: E03.9 Hypothyroidism, unspecified (principal); O14.95 Unspecified pre-eclampsia, complicating the puerperium
CPT/HCPCS: 36415; 80053; 80061; 82306; 84443; 85025

== ENCOUNTER → 2024-05-14 10:28 | Outpatient (CLI) | payer BC, SELFPAY ==
[2024-02-12 10:04] VITALS: BMI 27.3
[2024-05-14 11:40] LABS: Hemoglobin A1C% w Est Avg Glu 5.2 % (4.0-6.0)
[2024-05-14 11:46] LABS: Cholesterol 247 mg/dL (140-199); HDL Cholesterol 91 mg/dL (40-60); LDL Cholesterol Calculated 144 mg/dL (<100); Triglycerides 60 mg/dL (35-150)
[2024-05-14 11:59] LABS: Free T4, Direct Thyroxine 1.03 ng/dL (0.78-2.19)
[2024-05-14 12:13] LABS: Thyroid Stimulating Hormone 1.33 uIU/mL (0.47-4.68)
== END ==
PROVIDERS: PCP Family Medicine; Referring Provider Family Medicine; Visit Provider Family Medicine
DX: Z13.220 Encounter for screening for lipoid disorders (principal); Z13.1 Encounter for screening for diabetes mellitus; E03.9 Hypothyroidism, unspecified
CPT/HCPCS: 36415; 80061; 83036; 84439; 84443